=== PATIENT | male | born 1990 | race Two or more races ===

== ENCOUNTER 2021-04-15 17:54 | Emergency (ER) | payer BC ==
[~2021-04-15] VITALS: Ht 180.3 cm; Wt 86.2 kg
[2021-04-15 17:54] VITALS: BP 136/93
[2021-04-15] MEDS ORDERED: SODIUM CHLORIDE 0.9% 1,000 ML IV ONE (19:30)
== END 2021-04-15 21:45 | disposition left against medical advice (07) ==
LOC: ER 17:54
DX: R50.9 Fever, unspecified (principal); M79.10 Myalgia, unspecified site; Z53.21 Procedure and treatment not carried out due to patient leaving prior to being seen by health care provider